=== PATIENT | male | born 1955 | race Two or more races ===

== ENCOUNTER 2020-12-07 09:35 | Emergency (ER) | payer OTHER ==
[~2020-12-07] VITALS: Ht 185.4 cm; Wt 77.1 kg
[2020-12-07 09:36] VITALS: BP 129/59
[2020-12-07] MEDS ORDERED: cefTRIAXone SOD 1,000 MG VL IM ONE (10:15)
== END 2020-12-07 11:31 | disposition home or self-care (01) ==
LOC: ER 09:35
DX: J12.9 Viral pneumonia, unspecified (principal); E11.9 Type 2 diabetes mellitus without complications; Z20.822 Contact with and (suspected) exposure to COVID-19
CPT/HCPCS: 36415; 71045; 87426; 96372; 99284; C9803; J0696; U0003

== ENCOUNTER 2024-05-12 19:21 | Inpatient (IN) | payer OTHER ==
[~2024-05-12] VITALS: Ht 182.9 cm; Wt 91.0 kg
[2024-05-12 20:18] LABS: Basophils # (auto) 0.1 10 ^3/uL (0-0.2); Basophils % (auto) 0.7 % (0.0-2.0); Eosinophils # (auto) 0.2 10 ^3/uL (0-0.8); Hematocrit 33.5 % (41.0-53.0); Hemoglobin 11.2 g/dL (13.5-17.5); Lymphocytes # (auto) 2.7 10 ^3/uL (0.4-5.4); Lymphocytes % (auto) 31.1 % (10.0-50.0); Mean Corpuscular Hemoglobin 30.8 pg (28.0-32.0); Mean Corpuscular Hgb Conc. 33.2 g/dL (32.0-36.0); Mean Corpuscular Volume 92.6 fL (80.0-100.0); Monocytes # (auto) 0.5 10 ^3/uL (0-1.3); Monocytes % (auto) 6.3 % (0.0-12.0); Neutrophils # (auto) 5.1 10 ^3/uL (1.6-8.6); Neutrophils % (auto) 59.9 % (37.0-80.0); Nucleated Red Blood Cells % 0.1 %; Red Blood Cells 3.62 10^6/uL (4.5-5.90); White Blood Cell 8.5 10^3/uL (4.4-10.8)
[2024-05-12 20:37] LABS: Alanine Aminotransferase 61 U/L (7-40); Albumin 3.7 g/dL (3.2-4.8); Alkaline Phosphatase 67 U/L (46-116); Anion Gap 5 (5-15); Aspartate Aminotransferase 23 U/L (13-40); BUN/Creatinine Ratio 12.3 (10.0-20.0); Bilirubin, Total 0.4 mg/dL (0.2-1.0); Blood Urea Nitrogen 17 mg/dL (9-23); Calcium 8.9 mg/dL (8.5-10.1); Carbon Dioxide 26 mmol/L (20-30); Chloride 109 mmol/L (98-107); Glucose 308 mg/dL (74-106); Potassium 4.3 mmol/L (3.5-5.1); Sodium 140 mmol/L (136-145)
[2024-05-13] VITALS (8 sets, daily range): BP systolic 125–146; BP diastolic 60–87; PULSE 76–96; RESP 18–20; TEMP 97.5–98; O2SAT 94–96
[2024-05-13] MEDS ORDERED: NITROGLYCERIN 0.4 MG SL TAB SL PRN (05:00)
[2024-05-13] MEDS ORDERED: DEXTROSE (50%) 50ML SYRG IV PRN (05:00)
[2024-05-13] MEDS ORDERED: ONDANSETRON HCL 4 MG/2 ML VIAL IV PRN (05:00)
[2024-05-13] MEDS ORDERED: ACETAMINOPHEN 325 MG TAB PO PRN (05:00)
[2024-05-13] MEDS ORDERED: MORPHINE SULFATE INJ 2 MG/ml SYRG IV PRN (05:00)
[2024-05-13] MEDS: SODIUM CHLORIDE 0.9% 1,000 ML IV ONE (06:31)
[2024-05-13] MEDS: ACCU-CHEK COMFORT CURVE STRIP VI SCH (06:31)
[2024-05-13] MEDS: InsuLIN REG 1unit/0.01ml Soln (100units/ml) SC SCH (06:46)
[2024-05-13] MEDS: cloNIDine HCL 0.1 MG TAB PO ONE (07:31)
[2024-05-13 10:38] LABS: Triglycerides 159 mg/dL (< 150)
[2024-05-13 10:39] LABS: LDL Cholesterol 47 mg/dL (< 100)
[2024-05-13 10:40] LABS: Cholesterol 175 mg/dL (< 200); HDL Cholesterol 78 mg/dL (40-59)
[2024-05-13] MEDS: GABAPENTIN 300 MG CAP PO SCH (10:59)
[2024-05-13] MEDS ORDERED: SODIUM CHLORIDE 0.9% 1,000 ML IV SCH (13:45)
[2024-05-13] MEDS: SODIUM CHLORIDE 0.9% 1,000 ML IV SCH (14:31)
[2024-05-13] MEDS: chlordiazePOXIDE HCL 25 MG CAP PO SCH (14:31)
[2024-05-13] MEDS: FOLIC ACID 1 MG, MAGNESIUM SULF SDV 50% 8 MEQ, MULTIPLE VITAMIN 10 ML, THIAMINE INJ 100... INJ SCH (17:36)
[2024-05-13] MEDS: ATORVASTATIN 20 MG TAB PO SCH (21:31)
[2024-05-14 01:00] VITALS: BP 156/83; PULSE 78; RESP 18; TEMP 98.1; O2SAT 94
[2024-05-14 05:00] VITALS: BP_SYST 165; BP_SYST 169; BP_SYST 172; BP_DIAS 76; BP_DIAS 81; BP_DIAS 82; PULSE 70; PULSE 82; PULSE 85; RESP 18; TEMP 98.3; O2SAT 97; O2SAT 98; O2SAT 99
[2024-05-14 06:44] LABS: Chloride 109 mmol/L (98-107); Potassium 3.4 mmol/L (3.5-5.1); Sodium 140 mmol/L (136-145)
[2024-05-14 06:45] LABS: Anion Gap 5 (5-15); Carbon Dioxide 26 mmol/L (20-30)
[2024-05-14 06:46] LABS: Calcium 8.5 mg/dL (8.5-10.1)
[2024-05-14 06:51] LABS: BUN/Creatinine Ratio 14.9 (10.0-20.0); Blood Urea Nitrogen 14 mg/dL (9-23); Glucose 165 mg/dL (74-106)
[2024-05-14 08:00] VITALS: PULSE 79
[2024-05-14] MEDS ORDERED: FOLI-119 PO (08:57)
[2024-05-14] MEDS ORDERED: THIA100T13 PO (08:57)
[2024-05-14] MEDS ORDERED: CHLO25CA10 PO (08:57)
[2024-05-14 09:00] VITALS: BP_SYST 136; BP_SYST 140; BP_SYST 156; BP_DIAS 66; BP_DIAS 73; BP_DIAS 82; PULSE 76; RESP 18; TEMP 97.7; O2SAT 96
[2024-05-14] MEDS ORDERED: ATOR20TA PO (09:01)
[2024-05-14] MEDS: chlordiazePOXIDE HCL 25 MG CAP PO SCH (10:06)
[2024-05-14 13:00] VITALS: BP 99/78; PULSE 74; RESP 18; TEMP 97.6; O2SAT 94
[2024-05-14] MEDS: POTASSIUM EFFERVESENT TAB 25 MEQ PO ONE (13:15)
[2024-05-15] MEDS ORDERED: chlordiazePOXIDE HCL 25 MG CAP PO SCH (10:00)
[2024-05-16] MEDS ORDERED: chlordiazePOXIDE HCL 25 MG CAP PO SCH (07:00)
== END 2024-05-14 13:50 | disposition home or self-care (01) | DRG 897 ==
LOC: ER 19:21 → TELE 05-13 04:56 → TELE-E-ADS 05-13 08:22
PROVIDERS: ADMIT Nurse Practitioner; ATTEND Nurse Practitioner
DX: F10.129 Alcohol abuse with intoxication, unspecified (principal); N17.9 Acute kidney failure, unspecified; D64.9 Anemia, unspecified; E11.65 Type 2 diabetes mellitus with hyperglycemia; E66.9 Obesity, unspecified; E78.5 Hyperlipidemia, unspecified; I10 Essential (primary) hypertension; N40.0 Benign prostatic hyperplasia without lower urinary tract symptoms; Y90.9 Presence of alcohol in blood, level not specified; F10.139 Alcohol abuse with withdrawal, unspecified; I95.9 Hypotension, unspecified; Z68.27 Body mass index [BMI] 27.0-27.9, adult; Z71.41 Alcohol abuse counseling and surveillance of alcoholic; Y90.7 Blood alcohol level of 200-239 mg/100 ml
CPT/HCPCS: 36415; 70450; 80048; 80053; 80061; 80320; 82962; 83036; 84443; 84484; 85025; 93005; 93306; 93886; G0378; J1815

== ENCOUNTER 2024-05-24 09:33 | Inpatient (IN) | payer OTHER ==
[~2024-05-24] VITALS: Ht 172.7 cm; Wt 89.3 kg
[~2024-05-24 09:33] MED LIST: ATOR20TA PO; CHLO25CA10 PO; FOLI-119 PO; THIA100T13 PO
[2024-05-24 10:41] LABS: Basophils # (auto) 0 10 ^3/uL (0-0.2); Basophils % (auto) 0.7 % (0.0-2.0); Eosinophils # (auto) 0.1 10 ^3/uL (0-0.8); Eosinophils % (auto) 1.7 % (0.0-7.0); Hematocrit 31.8 % (41.0-53.0); Hemoglobin 10.9 g/dL (13.5-17.5); Lymphocytes % (auto) 14.3 % (10.0-50.0); Mean Corpuscular Hemoglobin 31.4 pg (28.0-32.0); Mean Corpuscular Hgb Conc. 34.2 g/dL (32.0-36.0); Mean Corpuscular Volume 91.8 fL (80.0-100.0); Monocytes # (auto) 0.4 10 ^3/uL (0-1.3); Monocytes % (auto) 5.4 % (0.0-12.0); Neutrophils # (auto) 5.4 10 ^3/uL (1.6-8.6); Neutrophils % (auto) 77.9 % (37.0-80.0); Red Blood Cells 3.46 10^6/uL (4.5-5.90); Red Cell Distribution Width 13.1 % (11.8-14.3)
[2024-05-24] MEDS: SODIUM CHLORIDE 0.9% 1,000 ML IV ONE ×2 (10:45→10:53)
[2024-05-24 10:46] LABS: Chloride 107 mmol/L (98-107); Potassium 3.9 mmol/L (3.5-5.1); Sodium 137 mmol/L (136-145)
[2024-05-24 10:47] LABS: Anion Gap 5 (5-15); Calcium 9.1 mg/dL (8.7-10.4); Carbon Dioxide 25 mmol/L (20-30)
[2024-05-24 10:52] LABS: BUN/Creatinine Ratio 7.1 (10.0-20.0); Blood Urea Nitrogen 11 mg/dL (9-23); Glucose 174 mg/dL (74-106)
[2024-05-24] MEDS: HYDROcodone-ACET 5/325MG TAB PO ONE (12:54)
[2024-05-24] MEDS ORDERED: NITROGLYCERIN 0.4 MG SL TAB SL PRN (13:00)
[2024-05-24] MEDS ORDERED: ONDANSETRON HCL 4 MG/2 ML VIAL IV PRN (13:00)
[2024-05-24] MEDS ORDERED: DOCUSATE SOD 100 MG CAP PO PRN (13:00)
[2024-05-24] MEDS: SODIUM CHLORIDE 0.9% 1,000 ML IV SCH (13:00)
[2024-05-24 16:15] LABS: Urine Bacteria None Seen /hpf (None Seen)
[2024-05-24 16:26] LABS: Urine Blood Negative /uL (Negative); Urine Clarity Turbid (Clear); Urine Color Yellow (Yellow); Urine Hyaline Cast FEW /lpf (0 - 2); Urine Mucus FEW (None Seen); Urine Protein, UAD Negative (Negative); Urine Specific Gravity 1.009 (1.001-1.035); Urine Urobilinogen Normal (Negative); Urine WBC 1 /hpf (0 - 3)
[2024-05-24 17:25] VITALS: TEMP 98
[2024-05-24 20:00] VITALS: PULSE 93; O2SAT 96
[2024-05-24] MEDS: MORPHINE SULFATE INJ 2 MG/ml SYRG IV PRN (20:36)
[2024-05-24 21:00] VITALS: BP 168/85; PULSE 102; RESP 24; TEMP 98.3; O2SAT 96
[2024-05-25] VITALS (8 sets, daily range): BP systolic 119–159; BP diastolic 51–93; PULSE 85–102; RESP 16–20; TEMP 98.3–98.9; O2SAT 92–100
[2024-05-25 06:41] LABS: Basophils # (auto) 0 10 ^3/uL (0-0.2); Basophils % (auto) 0.3 % (0.0-2.0); Eosinophils # (auto) 0.1 10 ^3/uL (0-0.8); Eosinophils % (auto) 0.9 % (0.0-7.0); Hematocrit 34.9 % (41.0-53.0); Lymphocytes # (auto) 1.4 10 ^3/uL (0.4-5.4); Lymphocytes % (auto) 16.4 % (10.0-50.0); Mean Corpuscular Hemoglobin 31.9 pg (28.0-32.0); Mean Corpuscular Hgb Conc. 34.4 g/dL (32.0-36.0); Mean Corpuscular Volume 92.9 fL (80.0-100.0); Monocytes # (auto) 0.8 10 ^3/uL (0-1.3); Monocytes % (auto) 9.5 % (0.0-12.0); Neutrophils # (auto) 6.3 10 ^3/uL (1.6-8.6); Neutrophils % (auto) 72.9 % (37.0-80.0); Red Blood Cells 3.76 10^6/uL (4.5-5.90); White Blood Cell 8.6 10^3/uL (4.4-10.8)
[2024-05-25 06:48] LABS: Alanine Aminotransferase 29 U/L (7-40); Alkaline Phosphatase 66 U/L (46-116); Anion Gap 7 (5-15); Aspartate Aminotransferase 17 U/L (13-40); BUN/Creatinine Ratio 10.5 (10.0-20.0); Bilirubin, Total 0.8 mg/dL (0.2-1.0); Blood Urea Nitrogen 15 mg/dL (9-23); Calcium 9.5 mg/dL (8.7-10.4); Carbon Dioxide 29 mmol/L (20-30); Chloride 105 mmol/L (98-107); Glucose 202 mg/dL (74-106); Potassium 3.8 mmol/L (3.5-5.1); Sodium 141 mmol/L (136-145); Total Protein 6.8 g/dL (5.7-8.2)
[2024-05-25] MEDS: THIAMINE HCL 100 MG TAB PO SCH (13:39)
[2024-05-25] MEDS: MORPHINE SULFATE INJ 2 MG/ml SYRG IV PRN (13:50)
[2024-05-26] VITALS (7 sets, daily range): BP systolic 132–162; BP diastolic 68–78; PULSE 64–98; RESP 16–19; TEMP 98.4–98.8; O2SAT 90–98
[2024-05-26] MEDS ORDERED: IBUP-1455 PO (09:55)
[2024-05-26] MEDS ORDERED: THIA100T10 PO (09:55)
[2024-05-26] MEDS ORDERED: AMLO1TAB23 PO (09:55)
== END 2024-05-26 11:50 | disposition home or self-care (01) | DRG 640 ==
LOC: EDBD 09:33 → ER 09:33 → TELE 13:02 → TELE-CENTR 17:21
PROVIDERS: ADMIT Nurse Practitioner Family; ATTEND Nurse Practitioner Acute Care
DX: E86.0 Dehydration (principal); N17.0 Acute kidney failure with tubular necrosis; I24.9 Acute ischemic heart disease, unspecified; S22.42XA Multiple fractures of ribs, left side, initial encounter for closed fracture; I95.89 Other hypotension; F17.200 Nicotine dependence, unspecified, uncomplicated; E11.9 Type 2 diabetes mellitus without complications; I10 Essential (primary) hypertension; E66.9 Obesity, unspecified; W18.39XA Other fall on same level, initial encounter; Z79.899 Other long term (current) drug therapy; Y93.89 Activity, other specified; Y92.89 Other specified places as the place of occurrence of the external cause; Y99.8 Other external cause status; Z68.29 Body mass index [BMI] 29.0-29.9, adult
CPT/HCPCS: 36415; 71045; 80048; 80053; 80320; 81001; 84484; 85025; 87081; 93005; 96360; 96361; 97110; 97116; 99291; G0378

== ENCOUNTER 2024-07-25 14:09 | Emergency (ER) | payer OTHER ==
[~2024-07-25 14:09] MED LIST changes: +AMLO1TAB23 PO; -CHLO25CA10 PO; -FOLI-119 PO; +IBUP-1455 PO; +THIA100T10 PO; -THIA100T13 PO
[2024-07-25 15:01] VITALS: BP 126/84; PULSE 106; RESP 18; TEMP 97.2; O2SAT 96
[2024-07-25] MEDS ORDERED: ACYC1TAB3 PO (16:05)
[2024-07-25] MEDS: KETOROLAC TROMETH 30 MG/ML 1ML VIAL IM ONE (16:06)
== END 2024-07-25 16:06 | disposition home or self-care (01) ==
LOC: ER 14:09
DX: B02.9 Zoster without complications (principal); E11.9 Type 2 diabetes mellitus without complications
CPT/HCPCS: 96372; 99283; J1885

== ENCOUNTER 2025-01-30 12:57 | Emergency (ER) | payer MEDICARE, OTHER ==
[~2025-01-30] VITALS: Ht 172.7 cm; Wt 90.2 kg
[~2025-01-30 12:57] MED LIST changes: +ACYC1TAB3 PO
[2025-01-30 13:03] VITALS: BP 104/49; PULSE 103; RESP 20; TEMP 97.8; O2SAT 96
[2025-01-30] MEDS ORDERED: NITR-87 PO (14:21)
--- NOTE | 2025-01-30 14:23 | ED.PDOC ---
General HPI Comments 69 y.o male presents to the ED for an evaluation of his Bruner catheter. Patient reports 2 weeks ago Bruner was placed s/p prostate surgery down in [place], [facility] last night he noticed leakage, bleeding in the bag and mentions discomfort at the insertion site. Patient has a follow up with surgeon soon to get Bruner catheter out but was concerned of catheter malfunction. He denies any dysuria, fever, chills, back, abdominal or flank pain. Chief Complaint: Urinary Time Seen by MD: 14:15 Primary Care Provider: UNKNOWN Reviewed notes: Nurses Notes, Medications, Allergies Allergies: Coded Allergies: NO KNOWN ALLERGIES (Unverified , 05/12/24) Home Meds Active Scripts Nitrofurantoin Monohydrate Mac (Macrobid) 100 Mg Cap, 100 MG PO BID for 10 Days, #20 CAP Prov:CHRISTIANO CAMPUZANO MD 01/30/25 Acyclovir (Acyclovir) 800 Mg Tab, 800 MG PO 5XD for 7 Days, #35 TAB Prov:LAURY JULIO PAC 07/25/24 Thiamine Hcl (VITAMIN B-1) 100 Mg Tb, 100 MG PO DAILY for 30 Days, #30 TAB Prov:ALEJANDRA WILLIS MAINTENANCE SHOP MANAGER 05/26/24 Amlodipine Besylate (Amlodipine Besylate) 10 Mg Tab, 1 TAB PO DAILY, #30 TAB 5 Refills Prov:ALEJANDRA WILLIS MAINTENANCE SHOP MANAGER 05/26/24 Ibuprofen Micronized (Ibuprofen) 800 Mg Tab, 800 MG PO Q8HP PRN for 5 Days, #15 TAB Prov:ALEJANDRA WILLIS NP 05/26/24 Atorvastatin Calcium (Lipitor) 20 Mg Tab, 1 TAB PO DAILY, #90 TAB 1 Refill Prov:EMMANUEL DREW MD 05/14/24 Information Source: Patient Mode of Arrival: Ambulatory Severity: Moderate Timing: Hours Duration: Since onset Onset: Spontaneous Symptoms: Hematuria History of: Suprapubic catheter Location: None Modifying factors: None associated signs and symptoms: Hematuria Past Medical History PAST MEDICAL HISTORY: DM Surgical History (Other): prostate Family History Family History: Reviewed,noncontributory to illness Social History Smoker: Non-Smoker Alcohol: Denies ETOH Use Drugs: Denies Drug Use Lives In: Home Constitutional: denies: chills, diaphoresis, fatigue, fever, malaise, sweats, weakness, others EENTM: denies: blurred vision, double vision, ear bleeding, ear discharge, ear drainage, ear pain, ear ringing, eye pain, eye redness, hearing loss, mouth pain, mouth swelling, nasal discharge, nose bleeding, nose congestion, nose pain, photophobia, tearing, throat pain, throat swelling, voice changes, others Respiratory: denies: cough, hemoptysis, orthopnea, SOB at rest, shortness of breath, SOB with excertion, stridor, wheezing, others Cardiovascular: denies: chest pain, dizzy spells, diaphoresis, Dyspnea on exertion, edema, irregular heart beat, left arm pain, lightheadedness, palpitations, PND, syncope, others Gastrointestinal: denies: abdomen distended, abdominal pain, blood streaked bowels, constipated, diarrhea, dysphagia, difficulty swallowing, hematemesis, melena, nausea, poor appetite, poor fluid intake, rectal bleeding, rectal pain, vomiting, others Genitourinary: reports: hematuria; denies: burning, dysuria, flank pain, frequency, incontinence, penile discharge, penile sore, pain, testicle pain, testicle swelling, urgency, others Neurological: denies: dizziness, fainting, headache, left sided numbness, left sided weakness, numbness, paresthesia, pre-existing deficit, right sided numbness, right sided weakness, seizure, speech problems, tingling, tremors, weakness, others Musculoskeletal: denies: back pain, gout, joint pain, joint swelling, muscle pain, muscle stiffness, neck pain, others Integumetry: denies: bruises, change in color, change in hair/nails, dryness, laceration, lesions, lumps, rash, wounds, others Allergic/Immunocompromised: denies: Difficulty Healing, Frequent Infections, Hives, Itching, others Hematologic/Lymphatic: denies: anemia, blood clots, easy bleeding, easy bruising, swollen glands, others Endocrine: denies: excessive hunger, excessive sweating, excessive thirst, excessive urination, flushing, intolerance to cold, intolerance to heat, unexplained weight gain, unexplained weight loss, others Psychiatric: denies: anxiety, bipolar disorder, depression, hopeless, panic disorder, schizophrenia, sleepless, suicidal, others All Other Systems: Reviewed and Negative Physical Exam General Appearance: No Apparent Distress, Other (Bruner Catheter intact with pinkish/cloudy urine output ) HEENT: Normal ENT Inspection, Pharynx Normal, TMs Normal Neck: Full Range of Motion, Non-Tender, Normal, Normal Inspection Respiratory: Chest Non-Tender, Lungs Clear, No Accessory Muscle Use, No Respiratory Distress, Normal Breath Sounds Cardiovascular: No Edema, No JVD, No Murmur, No Gallop, Normal Peripheral Pulses, Regular Rate/Rhythm Breast Exam: Deferred Gastrointestinal: No Organomegaly, Non Tender, No Pulsatile Mass, Normal Bowel Sounds, Soft Genitalia: Deferred Pelvic: Deferred Rectal: Deferred Extremities: No calf tenderness, Normal capillary refill, Normal inspection, Normal range of motion, Non-tender, No pedal edema Musculoskeletal : Apperance: Normal Neurologic: Alert, print journalist II-XII nml as Tested, No Motor Deficits, Normal Affect, Normal Mood, No Sensory Deficits Cerebellar Function: Normal Reflexes: Normal Skin: Dry, Normal Color, Warm Lymphatic: No Adenopathy Was a procedure done? Was a procedure done?: No Differential Diagnosis Kidney stone (Female): N/A Penile/Scrotal: Urolithiasis Urinary Problem (Male): Post op Complications, UTI X-Ray, Labs, Meds, VS Vital Signs Date Time Temp Pulse Resp B/P (MAP) Pulse Ox O2 Delivery O2 Flow Rate FiO2 01/30/25 13:03 97.8 103 20 104/49 (67) 96 97.8 Time of 1ST Reevaluation: 14:18 Reevaluation 1ST: Unchanged Patient Education/Counseling: Diagnosis, Treatment, Prognosis Family Education/Counseling: No Family Present Departure 1 Departure Time of Disposition: 15:00 Impression: Primary Impression: UTI (urinary tract infection) due to urinary indwelling Bruner catheter Additional Impression: Hematuria Disposition: HOME / SELF CARE / HOMELESS Condition: Stable e-Prescriptions Nitrofurantoin Monohydrate Mac (Macrobid) 100 Mg Cap 100 MG PO BID for 10 Days, #20 CAP Prov: CHRISTIANO CAMPUZANO MD 01/30/25 Discharged With: Self Critical Care Note Critical Care Time?: No Stability Stability form required: No I personally scribed for CHRISTIANO CAMPUZANO MD ([email or web address]) on 01/30/25 at 14:23. Electronically submitted by Phuong Chowdhury ([facility]). CHRISTIANO CAMPUZANO MD Jan 30, 2025 14:23
[2025-01-30] MEDS ORDERED: NITROFURANTOIN 100 mg CAP PO ONE (14:30)
== END 2025-01-30 15:36 | disposition left against medical advice (07) ==
LOC: ER 12:57
DX: N39.0 Urinary tract infection, site not specified (principal); E11.9 Type 2 diabetes mellitus without complications; Z79.899 Other long term (current) drug therapy

== ENCOUNTER 2025-02-21 11:29 | Emergency (ER) | payer MEDICARE ==
[~2025-02-21] VITALS: Ht 177.8 cm; Wt 97.0 kg
[~2025-02-21 11:29] MED LIST changes: +NITR-87 PO
[2025-02-21 11:34] VITALS: TEMP 98.5
[2025-02-21] MEDS: SODIUM CHLORIDE 0.9% 500 ML IV ONE (11:44)
--- NOTE | 2025-02-21 11:45 | ED.PDOC ---
History of Present Illness HPI Comments This is a 69-year-old male who comes in with chief complaint of weakness x1 hour. The patient was found outside by the paramedics sitting down in a lawn chair and seeming somewhat weak and a little bit altered. The patient had an open container of insulin sitting by him. He does have a history of diabetes. The patient also admits to drinking one beer today in his not taking any other fluids. When the paramedics were starting his IV, the patient had a short syncopal episode. The patient denies any type of chest pain or shortness for breath. The patient was given normal saline at 250 cc bolus. Initially, the patient was blood pressure was 85 systolic. EN route, the patient's Accu-Chek was 157. Upon arrival, the patient was able to give us his medical history. Chief Complaint: General Weakness Time Seen by MD: 11:30 Primary Care Provider: UNKNOWN Reviewed Notes: Nurses Notes, Cleat Blanker Notes, Medications, Allergies (No allergies to medications) Allergies: Coded Allergies: NO KNOWN ALLERGIES (Unverified , 05/12/24) Home Meds Active Scripts Nitrofurantoin Monohydrate Mac (Macrobid) 100 Mg Cap, 100 MG PO BID for 10 Days, #20 CAP Prov:CHRISTIANO CAMPUZANO MD 01/30/25 Acyclovir (Acyclovir) 800 Mg Tab, 800 MG PO 5XD for 7 Days, #35 TAB Prov:LAURY JULIO [facility] 07/25/24 Thiamine Hcl (VITAMIN B-1) 100 Mg Tb, 100 MG PO DAILY for 30 Days, #30 TAB Prov:ALEJANDRA WILLIS CERTIFIED BREASTFEEDING EDUCATOR 05/26/24 Amlodipine Besylate (Amlodipine Besylate) 10 Mg Tab, 1 TAB PO DAILY, #30 TAB 5 Refills Prov:ALEJANDRA WILLIS NP 05/26/24 Ibuprofen Micronized (Ibuprofen) 800 Mg Tab, 800 MG PO Q8HP PRN for 5 Days, #15 TAB Prov:ALEJANDRA WILLIS NP 05/26/24 Atorvastatin Calcium (Lipitor) 20 Mg Tab, 1 TAB PO DAILY, #90 TAB 1 Refill Prov:EMMANUEL DREW MD 05/14/24 Information Source: Patient, Emergency Med Personnel Mode of Arrival: EMS Severity: Moderate Timing: Hours Duration: Since onset Prehospital treatment: 12 Lead EKG, Accucheck (157), Homicide Squad Sergeant, IVF Associated signs and symptoms The patient denies any chest pain or shortness for breath Past Medical History PAST MEDICAL HISTORY: DM, HTN Past Medical History (Other): BPH Surgical History (Other): The patient has some type of abdominal surgery but is unknown Family History Family History: Reviewed,noncontributory to illness Social History Smoker: Non-Smoker Alcohol: Occasionally Drugs: Denies Drug Use Lives In: Home Constitutional: reports: weakness; denies: chills, diaphoresis, fatigue, fever, malaise, sweats, others EENTM: denies: blurred vision, double vision, ear bleeding, ear discharge, ear drainage, ear pain, ear ringing, eye pain, eye redness, hearing loss, mouth pain, mouth swelling, nasal discharge, nose bleeding, nose congestion, nose pain, photophobia, tearing, throat pain, throat swelling, voice changes, others Respiratory: denies: cough, hemoptysis, orthopnea, SOB at rest, shortness of breath, SOB with excertion, stridor, wheezing, others Cardiovascular: reports: syncope; denies: chest pain, dizzy spells, diaphoresis, Dyspnea on exertion, edema, irregular heart beat, left arm pain, lightheadedness, palpitations, PND, others Gastrointestinal: denies: abdomen distended, abdominal pain, blood streaked bowels, constipated, diarrhea, dysphagia, difficulty swallowing, hematemesis, melena, nausea, poor appetite, poor fluid intake, rectal bleeding, rectal pain, vomiting, others Genitourinary: denies: burning, dysuria, flank pain, frequency, hematuria, incontinence, penile discharge, penile sore, pain, testicle pain, testicle swelling, urgency, others Neurological: denies: dizziness, fainting, headache, left sided numbness, left sided weakness, numbness, paresthesia, pre-existing deficit, right sided numbness, right sided weakness, seizure, speech problems, tingling, tremors, weakness, others Musculoskeletal: denies: back pain, gout, joint pain, joint swelling, muscle pain, muscle stiffness, neck pain, others Integumetry: denies: bruises, change in color, change in hair/nails, dryness, laceration, lesions, lumps, rash, wounds, others Allergic/Immunocompromised: denies: Difficulty Healing, Frequent Infections, Hives, Itching, others Hematologic/Lymphatic: denies: anemia, blood clots, easy bleeding, easy bruising, swollen glands, others Endocrine: denies: excessive hunger, excessive sweating, excessive thirst, excessive urination, flushing, intolerance to cold, intolerance to heat, unexplained weight gain, unexplained weight loss, others Psychiatric: denies: anxiety, bipolar disorder, depression, hopeless, panic disorder, schizophrenia, sleepless, suicidal, others Physical Exam General Appearance: Moderate Distress HEENT: Pale Conjuntivae (L), Pale Conjuntivae (R), Pharynx Normal, TMs Normal Neck: Full Range of Motion, Non-Tender, Normal, Normal Inspection Respiratory: Chest Non-Tender, Lungs Clear, No Accessory Muscle Use, No Respiratory Distress, Normal Breath Sounds Cardiovascular: No Edema, No JVD, No Murmur, No Gallop, Normal Peripheral Pulses, Regular Rate/Rhythm Breast Exam: Deferred Gastrointestinal: No Organomegaly, Non Tender, No Pulsatile Mass, Normal Bowel Sounds, Soft Genitalia: Deferred Pelvic: Deferred Rectal: Deferred Extremities: No calf tenderness, Normal capillary refill, Normal inspection, Normal range of motion, Non-tender, No pedal edema Musculoskeletal : Apperance: Normal Neurologic: Alert, mainframe systems engineer II-XII nml as Tested, Motor Weakness, Normal Affect, Normal Mood, No Sensory Deficits Cerebellar Function: Normal Reflexes: Normal Skin: Dry, Normal Color, Warm Lymphatic: No Adenopathy Was a procedure done? Was a procedure done?: No EKG EKG : Pulse Rate (adult): 89 Moffit: Normal Cardiac Rhythm: NSR Block: None ST: Nonsp Differential Dx Considerations may include: Hypoglycemia, generalized weakness, electrolyte imbalance, autonomic dysfunction, alcohol intoxication X-Ray, Labs, Meds, VS Vital Signs Date Time Temp Pulse Resp B/P (MAP) Pulse Ox O2 Delivery O2 Flow Rate FiO2 02/21/25 11:45 89 02/21/25 11:36 89 02/21/25 11:34 98.5 91 16 118/74 (89) 94 98.5 02/21/25 11:34 98.5 91 16 118/74 (89) 94 98.5 Lab Test 02/21/25 12:54 02/21/25 12:00 02/21/25 11:45 Range/Units Troponin I High Sensitivity < 3 L < 3 L </=54 ng/L Urine Color Yellow Yellow Urine Clarity Clear Clear Urine pH 6.5 5.0-9.0 Urine Specific O'Brien 1.017 1.001-1.035 Urine Protein Trace H Negative Urine Ketones Negative Negative Urine Blood 1+ H Negative /uL Urine Nitrite Negative Negative Urine Bilirubin Negative Negative Urine Urobilinogen Normal Negative mg/dL Urine Leukocyte Esterase 2+ Negative /uL Urine RBC 33 0 - 3 /hpf Urine Microscopic WBC 18 H 0-3 /HPF Urine Squamous Epithelial Cells Few <5 /hpf Urine Bacteria Few H None Seen /hpf Urine Hyaline Casts Few 0 - 2 /lpf Urine Glucose Normal Normal mg/dL White Blood Count 7.7 4.4-10.8 10^3/uL Red Blood Count 3.74 L 4.5-5.90 10^6/uL Hemoglobin 11.1 L 13.5-17.5 g/dL Hematocrit 32.9 L 41.0-53.0 % Mean Corpuscular Volume 88.0 80.0-100.0 fL Mean Corpuscular Hemoglobin 29.7 28.0-32.0 pg Mean Corpuscular Hemoglobin Concent 33.7 32.0-36.0 g/dL Red Cell Distribution Width 14.1 11.8-14.3 % Platelet Count 338 140-450 10^3/uL Mean Platelet Volume 8.3 6.9-10.8 fL Neutrophils (%) (Auto) 75.2 37.0-80.0 % Lymphocytes (%) (Auto) 18.3 10.0-50.0 % Monocytes (%) (Auto) 5.3 0.0-12.0 % Eosinophils (%) (Auto) 0.8 0.0-7.0 % Basophils (%) (Auto) 0.4 0.0-2.0 % Neutrophils # (Auto) 5.8 1.6-8.6 10 ^3/uL Lymphocytes # (Auto) 1.4 0.4-5.4 10 ^3/uL Monocytes # (Auto) 0.4 0-1.3 10 ^3/uL Eosinophils # (Auto) 0.1 0-0.8 10 ^3/uL Basophils # (Auto) 0 0-0.2 10 ^3/uL Nucleated Red Blood Cells 0.0 % Sodium Level 137 136-145 mmol/L Potassium Level 4.7 3.5-5.1 mmol/L Chloride Level 103 98-107 mmol/L Carbon Dioxide Level 26 20-31 mmol/L Anion Gap 8 5-15 Blood Urea Nitrogen 21 9-23 mg/dL Creatinine 1.22 0.700-1.30 mg/dL Glomerular Filtration Rate Calc 64 >90 mL/min BUN/Creatinine Ratio 17.2 10.0-20.0 Serum Glucose 176 H 74-106 mg/dL Calcium Level 9.4 8.7-10.4 mg/dL Total Bilirubin 0.9 0.2-1.0 mg/dL Aspartate Amino Transferase (AST) 13 13-40 U/L Alanine Aminotransferase (ALT) 26 7-40 U/L Alkaline Phosphatase 77 46-116 U/L Total Protein 6.8 5.7-8.2 g/dL Albumin 4.1 3.2-4.8 g/dL Plasma/Serum Blood Alcohol 15.6 H <10 mg/dL Current Medications Medications (Trade) Dose Ordered Sig/Denys Route Start Time Stop Time Status Last Admin Sodium Chloride 500 ml @ 500 mls/hr Q1H ONCE IV 02/21/25 11:45 02/21/25 12:44 DC 02/21/25 11:44 IV Hep-Lock was established The patient was being given a 500 cc bolus of normal saline Cat scan of the head is negative The patient's CBC is within normal limits The chemistry panel is within normal limits The alcohol level is negative The troponin level is negative At this time, the patient was being admitted with a diagnosis of autonomic dysfunction The urine test is positive for UTI The patient was given Rocephin 1 g IV piggyback The troponin level x2 is negative Images Reviewed?: Images reviewed and evaluated by me Time of 1ST Reevaluation: 11:45 Reevaluation 1ST: Unchanged Patient Education/Counseling: Diagnosis, Treatment, Prognosis Family Education/Counseling: No Family Present Departure 1 Departure Time of Disposition: 15:05 Impression: Primary Impression: Generalized weakness Additional Impression: Autonomic dysfunction Disposition: 09 ADMITTED INPATIENT Admit to: [facility] Condition: Fair Critical Care Note Critical Care Time?: Yes (45 min-critical care time only) Stability Stability form required: Yes Unstable for transfer: Telemetry monitoring (Telemetry monitoring required), ED Physician Assesment (Clinical assesment) Heart Score Heart Score: Heart Score Response (Comments) Value History N/A 0 EKG N/A 0 Age N/A 0 Risk Factors N/A 0 Troponin N/A 0 Total 0 CALVIN ADKINS MD Feb 21, 2025 11:45
[2025-02-21 12:11] LABS: Basophils # (auto) 0 10 ^3/uL (0-0.2); Basophils % (auto) 0.4 % (0.0-2.0); Eosinophils # (auto) 0.1 10 ^3/uL (0-0.8); Eosinophils % (auto) 0.8 % (0.0-7.0); Hematocrit 32.9 % (41.0-53.0); Hemoglobin 11.1 g/dL (13.5-17.5); Lymphocytes # (auto) 1.4 10 ^3/uL (0.4-5.4); Lymphocytes % (auto) 18.3 % (10.0-50.0); Mean Corpuscular Hemoglobin 29.7 pg (28.0-32.0); Mean Corpuscular Hgb Conc. 33.7 g/dL (32.0-36.0); Monocytes # (auto) 0.4 10 ^3/uL (0-1.3); Monocytes % (auto) 5.3 % (0.0-12.0); Neutrophils # (auto) 5.8 10 ^3/uL (1.6-8.6); Neutrophils % (auto) 75.2 % (37.0-80.0); Platelet Count (auto) 338 10^3/uL (140-450); Red Blood Cells 3.74 10^6/uL (4.5-5.90); Red Cell Distribution Width 14.1 % (11.8-14.3); White Blood Cell 7.7 10^3/uL (4.4-10.8)
[2025-02-21 12:12] LABS: Alanine Aminotransferase 26 U/L (7-40); Albumin 4.1 g/dL (3.2-4.8); Alkaline Phosphatase 77 U/L (46-116); Anion Gap 8 (5-15); BUN/Creatinine Ratio 17.2 (10.0-20.0); Bilirubin, Total 0.9 mg/dL (0.2-1.0); Blood Alcohol 15.6 mg/dL (<10); Blood Urea Nitrogen 21 mg/dL (9-23); Calcium 9.4 mg/dL (8.7-10.4); Carbon Dioxide 26 mmol/L (20-31); Chloride 103 mmol/L (98-107); Potassium 4.7 mmol/L (3.5-5.1); Sodium 137 mmol/L (136-145); Total Protein 6.8 g/dL (5.7-8.2)
[2025-02-21 12:16] LABS: Aspartate Aminotransferase 13 U/L (13-40); Glucose 176 mg/dL (74-106)
--- NOTE | 2025-02-21 12:51 | DVH ---
CLINICAL INFORMATION: 69 years old, Male; syncope. TECHNIQUE: Axial imaging was obtained through the brain without contrast. Coronal and sagittal reform atted images were obtained, reviewed, and stored. Images were reviewed in brain and bone windows. Al l CT scans at this medical facility are performed using dose modulation techniques as appropriate to a performed exam including the following: Automated exposure control was utilized; adjustment of the MA and/or KV according to patient size; and use of iterative reconstruction technique. CTDIvol = 61.9 7 mGy DLP = 1097.22 mGy-cm COMPARISON: CT HEAD WITHOUT CONTRAST on DOS: 05/13/24 FINDINGS: There is no acute intracranial hemorrhage. No mass effect or midline shift. The ventricles and sulci are within normal limits in size for age. Basal cisterns are patent. The calvarium is unre markable. Paranasal sinuses and mastoid air cells are clear. IMPRESSION: No CT evidence of acute intracranial abnormality.
[2025-02-21 13:29] LABS: Urine Bacteria FEW /hpf (None Seen); Urine Blood 1+ /uL (Negative); Urine Clarity Clear (Clear); Urine Color Yellow (Yellow); Urine Hyaline Cast FEW /lpf (0 - 2); Urine Protein, UAD TRACE (Negative); Urine Specific Gravity 1.017 (1.001-1.035); Urine Squamous Epithelial Cell FEW /hpf (<5); Urine Urobilinogen Normal (Negative); Urine WBC 18 /HPF (0-3); Urine pH 6.5 (5.0-9.0)
[2025-02-21] MEDS: cefTRIAXone 1GM/50ML D5W 50 ML IV ONE (15:27)
[2025-02-21 15:28] VITALS: BP 109/51; PULSE 83; RESP 16; O2SAT 97
[2025-02-21] MEDS ORDERED: CIPR-173 PO (15:43)
--- NOTE | 2025-02-22 12:26 | ECG ---
[facility] Test Date: 2025-02-21 Test Time: 11:36:40 Pat Name: GERMAN JAVED Department: ED Room: Gender: M Hoe Worker: JAG : 1955 Requested By: CALVIN ADKINS Order Number: [id number] Reading MD: Miah Del Valle Measurements Intervals Hopkins Rate: 89 P: 63 IL: 149 QRS: 82 QRSD: 90 T: 58 QT: 359 QTc: 437 Interpretive Statements Sinus rhythm Borderline right axis deviation Borderline ST elevation, inferior leads Electronically Signed On 02-23-2025 13:06:02 PDT by Miah Del Valle Please click the below link to view image of tracing.
== END 2025-02-21 15:54 | disposition home or self-care (01) ==
LOC: EDBD 11:29 → ER 11:29 → EDUNIT# 11:29 → ER 15:54
DX: R53.1 Weakness (principal); G90.9 Disorder of the autonomic nervous system, unspecified; E11.9 Type 2 diabetes mellitus without complications; R55 Syncope and collapse; I10 Essential (primary) hypertension; Z79.899 Other long term (current) drug therapy
CPT/HCPCS: 36415; 70450; 80053; 80320; 81001; 82947; 84484; 85025; 93005; 96365; 99285; J0696